=== PATIENT | female | born 1990 | race Caucasian/White ===

== ENCOUNTER 2017-06-29 14:54 | Emergency (ER) | payer SELFPAY ==
[2017-06-29 14:56] VITALS: BP 152/80; PULSE 110; RESP 18; TEMP 37.3; O2SAT 97; BMI 43.7
--- NOTE | 2017-06-29 15:10 | ED.VISSUMM ---
- ER Visit Summary Date of Service: 06/29/17 Chief Complaint: Back pain History of Present Illness: The patient is a 26 F presenting for evaluation secondary to back pain. Patient states that about a month and a half ago she suffered a mechanical fall. Patient states that she had lower back pain since then, there was continuous and was not alleviated by stretches and [id number] ibuprofen and Tylenol. Patient states that 5 days ago she went to a chiropractor who did manipulation, and she states that her pain is significantly worse. Patient localizes her pain in her lower back states that it used to radiate down her left leg now is radiating down her right leg. She denies any bowel or bladder incontinence numbness weakness fevers history of IV drug abuse or any recent injections or procedures. She denies any unintended weight loss. Pain is worse with ambulation. Review of systems otherwise negative. Physical Examination: Vitals: Within normal limits General: Well-nourished well-developed no acute distress Head: Normocephalic atraumatic ENT: Moist mucous membranes Neck: Supple no JVD Cardiovascular: Heart regular rate and rhythm no murmurs Respiratory: Respirations nondistressed, lung sounds clear to auscultation bilaterally Abdominal: Soft, nontender, nondistended, normal bowel sounds, no evidence of abdominal masses or pulsatile mass Back: Normal to inspection, both midline and paraspinal lumbar tenderness to palpation without localization step-off or deformity noted., straight leg raise negative bilaterally Extremities: Nontender, nonedematous, 2+ radial and PT pulses bilaterally symmetric Skin: Normal color no rash Neuro: 5/5 strength hip flexion, knee flexion, knee extension, dorsiflexion, plantarflexion, EHL. Sensation intact over all dermatomes of the lower extremities bilaterally, 2+ patellar and Achilles reflexes bilaterally symmetric, negative clonus bilaterally Test Results: 3 view lumbar x-ray per radiology shows DJD and scoliosis Emergency Department Course and Treatment: Patient presented to the emergency department for evaluation secondary to back pain. Her history seems like she does have a radicular component to this and she had some midline tenderness on x-ray was obtained which was found to be essentially negative except for some degenerative disc disease. This point given the patient's radicular symptoms she will be placed on a short course of steroids. She was recommended follow-up with her primary care doctor. Disposition: Discharge Impression: 1. Lumbar radiculopathy This note was generated with [employer] dictation software. It may contain incorrect words, spelling, and punctuation that were not noted in review of the chart prior to signing ED Disposition - Plan for ED Patient: Disposition: Home or Assisted Living Chief Complaint: Back Diagnosis: Lumbar radiculopathy, acute Instructions: ED Sciatica Prescriptions: MethylPREDNISolone DosePak [Medrol DosePak] 4 mg PO UD #1 box Referrals: Bishnu Johnson MD [Primary Care Provider] - 1 Week if not improving
--- NOTE | 2017-06-29 15:13 | ED.DCSUM_ITS ---
- ER Visit Summary Date of Service: 06/29/17 Chief Complaint: Back pain History of Present Illness: The patient is a 26 F presenting for evaluation secondary to back pain. Patient states that about a month and a half ago she suffered a mechanical fall. Patient states that she had lower back pain since then, there was continuous and was not alleviated by stretches and over-the- counter ibuprofen and Tylenol. Patient states that 5 days ago she went to a chiropractor who did manipulation, and she states that her pain is significantly worse. Patient localizes her pain in her lower back states that it used to radiate down her left leg now is radiating down her right leg. She denies any bowel or bladder incontinence numbness weakness fevers history of IV drug abuse or any recent injections or procedures. She denies any unintended weight loss. Pain is worse with ambulation. Review of systems otherwise negative. Physical Examination: Vitals: Within normal limits General: Well-nourished well-developed no acute distress Head: Normocephalic atraumatic ENT: Moist mucous membranes Neck: Supple no JVD Cardiovascular: Heart regular rate and rhythm no murmurs Respiratory: Respirations nondistressed, lung sounds clear to auscultation bilaterally Abdominal: Soft, nontender, nondistended, normal bowel sounds, no evidence of abdominal masses or pulsatile mass Back: Normal to inspection, both midline and paraspinal lumbar tenderness to palpation without localization step-off or deformity noted., straight leg raise negative bilaterally Extremities: Nontender, nonedematous, 2+ radial and PT pulses bilaterally symmetric Skin: Normal color no rash Neuro: 5/5 strength hip flexion, knee flexion, knee extension, dorsiflexion, plantarflexion, EHL. Sensation intact over all dermatomes of the lower extremities bilaterally, 2+ patellar and Achilles reflexes bilaterally symmetric , negative clonus bilaterally Test Results: 3 view lumbar x-ray per radiology shows DJD and scoliosis Emergency Department Course and Treatment: Patient presented to the emergency department for evaluation secondary to back pain. Her history seems like she does have a radicular component to this and she had some midline tenderness on x -ray was obtained which was found to be essentially negative except for some degenerative disc disease. This point given the patient's radicular symptoms she will be placed on a short course of steroids. She was recommended follow- up with her primary care doctor. Disposition: Discharge Impression: 1. Lumbar radiculopathy This note was generated with [employer] dictation software. It may contain incorrect words, spelling, and punctuation that were not noted in review of the chart prior to signing ED Disposition - Plan for ED Patient: Disposition: Home or Assisted Living Chief Complaint: Back Diagnosis: Lumbar radiculopathy, acute Instructions: ED Sciatica Prescriptions: MethylPREDNISolone DosePak [Medrol DosePak] 4 mg PO UD #1 box Referrals: Bishnu Johnson MD [Primary Care Provider] - 1 Week if not improving
--- NOTE | 2017-06-29 15:35 | RAD_ITS ---
STUDY: X-RAY - LUMBAR SPINE REASON FOR EXAM: Female, 26 years old. Increasing low back pain and spasm following a recent fall. TECHNIQUE: 3 view(s) of the lumbar spine were obtained. COMPARISON: None FINDINGS: There is straightening of the normal lumbar lordosis. There is no substantial scoliosis. There is a normal alignment of the vertebrae. Normal vertebral bodies and endplates. Mild degree of disc space narrowing at the L3-L4, L4-L5 and L5-S1 levels. IUD is seen within the pelvis. RAD/Lumbar Spine 2 or 3 Views IMPRESSION: Mild degree of disc space narrowing at the L3-L4, L4-L5 and L5-S1 levels. Electronically Signed: Jeff Masterson MD at 15:47 EDT Tel [phone], Service support ,
[2017-06-29 16:11] VITALS: BP 134/69; PULSE 64; RESP 17
== END 2017-06-29 16:12 | disposition home or self-care (01) ==
PROVIDERS: Emergency Provider Emergency Medicine; Family Provider Family Medicine; PCP Family Medicine
DX: M54.16 Radiculopathy, lumbar region (principal); F41.9 Anxiety disorder, unspecified; E66.9 Obesity, unspecified; Z68.41 Body mass index [BMI] 40.0-44.9, adult
CPT/HCPCS: 72100; 99282

== ENCOUNTER 2017-08-03 12:44 | Emergency (ER) | payer OTHER, SELFPAY ==
[2017-08-03 12:46] VITALS: BP 143/83; PULSE 103; RESP 16; TEMP 37.2; O2SAT 98; BMI 42.8
--- NOTE | 2017-08-03 12:49 | ED.RN ---
DATABASE CHECKED FOR DRUG SCREEN. NOT IN SYSTEM. PT INSTRUCTED TO SUPPLY CLERK FOR DRUG SCREEN/FOLLOW UP.
--- NOTE | 2017-08-03 13:07 | ED.RN ---
per Florecita in HR at [facility] any company can be used for necessary drug testing. [facility] contacted
--- NOTE | 2017-08-03 13:20 | RAD_ITS ---
STUDY: X-RAY - RIGHT HAND REASON FOR EXAM: Female, 27 years old. Pain following injury. TECHNIQUE: 4 view(s) of the hand. COMPARISON: None. FINDINGS: Normal radiocarpal articulation. Normal distal radioulnar joint. Normal visualized carpal bones. Normal carpal articulations Normal carpometacarpal articulation of the thumb. Normal second through fifth carpometacarpal joints. Normal metacarpi. Normal metacarpophalangeal joint of the thumb. Normal interphalangeal joint of the thumb. Normal proximal and distal phalanges of the thumb. Normal metacarpophalangeal joints of the second through fifth fingers. Normal proximal and distal interphalangeal joints of the second through fifth fingers. Normal phalanges of the second through fifth fingers. The soft tissue structures are unremarkable. RAD/Hand Min 3 Views IMPRESSION: Normal x-ray examination of the hand. Electronically Signed: Jeff Masterson MD at 13:50 EDT Tel [phone], Service support ,
[2017-08-03] MEDS: Naproxen 500 MG Tablet PO (13:36)
--- NOTE | 2017-08-03 13:54 | ED.VISSUMM ---
- ER Visit Summary Date of Service: 08/03/17 Chief Complaint: Right hand injury History of Present Illness: The patient is a [address] Jett cortés. She is right-hand dominant. She reports that just prior to coming emergency department she had a window propped up with a piece of wood and it fell and crushed her right hand. She has pain is 1010 with movement and 7 out of 10 at rest. She describes this as sharp. She has no paresthesias distally. She denies any other complaints. Physical Examination: Vitals: Stable. Afebrile. General: Well-nourished and well-developed. Head: Normocephalic atraumatic. Neck: Supple, no lymphadenopathy. No JVD. Nontender. Cardiovascular: Regular rate and rhythm. No murmurs. Respiratory: No respiratory distress. Clear to auscultation bilaterally. Abdominal: Soft, nontender, nondistended, normal bowel sounds. No guarding, rebound, or peritoneal signs. Back: Nontender. Extremities: Moderate tenderness palpation over the dorsum of her right hand. Mild soft tissue swelling. No contusion. Neurovascular intact distally. Skin: Normal color, no rash. Neurologic: Alert and oriented ?3. Cranial nerves II through XII are intact. Normal strength and sensation. Psych: Normal affect. Test Results: X-ray is negative. Emergency Department Course and Treatment: Patient was treated with naproxen. Treatment Plan: Patient will be discharged instructed use Tylenol and/or ibuprofen for pain. [facility] for another exam. Disposition: To home in improved and stable condition. Impression: 1. Crush injury right hand. This note was generated with [employer] dictation software. It may contain incorrect words, spelling, and punctuation that were not noted in review of the chart prior to signing ED Disposition - Plan for ED Patient: Chief Complaint: Upper Extremity Injury Instructions: ED Contusion Hand Referrals: [facility] [GROUP OF PHYSICIANS] - 1 Week
--- NOTE | 2017-08-03 14:08 | ED.DCSUM_ITS ---
- ER Visit Summary Date of Service: 08/03/17 Chief Complaint: Right hand injury History of Present Illness: The patient is a [address] Jett cortés. She is right-hand dominant. She reports that just prior to coming emergency department she had a window propped up with a piece of wood and it fell and crushed her right hand. She has pain is 1010 with movement and 7 out of 10 at rest. She describes this as sharp. She has no paresthesias distally. She denies any other complaints. Physical Examination: Vitals: Stable. Afebrile. General: Well-nourished and well-developed. Head: Normocephalic atraumatic. Neck: Supple, no lymphadenopathy. No JVD. Nontender. Cardiovascular: Regular rate and rhythm. No murmurs. Respiratory: No respiratory distress. Clear to auscultation bilaterally. Abdominal: Soft, nontender, nondistended, normal bowel sounds. No guarding, rebound, or peritoneal signs. Back: Nontender. Extremities: Moderate tenderness palpation over the dorsum of her right hand. Mild soft tissue swelling. No contusion. Neurovascular intact distally. Skin: Normal color, no rash. Neurologic: Alert and oriented ?3. Cranial nerves II through XII are intact. Normal strength and sensation. Psych: Normal affect. Test Results: X-ray is negative. Emergency Department Course and Treatment: Patient was treated with naproxen. Treatment Plan: Patient will be discharged instructed use Tylenol and/or ibuprofen for pain. Follow-up [facility] in 1 week for another exam. Disposition: To home in improved and stable condition. Impression: 1. Crush injury right hand. This note was generated with [employer] dictation software. It may contain incorrect words, spelling, and punctuation that were not noted in review of the chart prior to signing ED Disposition - Plan for ED Patient: Chief Complaint: Upper Extremity Injury Instructions: ED Contusion Hand Referrals: [facility] [GROUP OF PHYSICIANS] - 1 Week
== END 2017-08-03 14:26 | disposition home or self-care (01) ==
LOC: ED 13:59
PROVIDERS: Emergency Provider Emergency Medicine; Family Provider Family Medicine; PCP Family Medicine
DX: S67.21XA Crushing injury of right hand, initial encounter (principal); W22.8XXA Striking against or struck by other objects, initial encounter; Y93.9 Activity, unspecified; Y92.9 Unspecified place or not applicable; Z72.89 Other problems related to lifestyle
CPT/HCPCS: 73130; 99283

== ENCOUNTER → 2018-01-28 15:39 | Outpatient (CLI) | payer OTHER, SELFPAY ==
[2018-01-28 17:36] LABS: Absolute Lymphocyte Count 2.33 X10^3/ul (0.83-4.51); Absolute Neutrophil Count 3.5 X10^3/uL (2.0-7.7); Basophil# 0.02 X10^3/uL; Basophil% 0.3 % (0-1); Eosinophil# 0.09 X10^3/uL; Eosinophils% 1.4 % (0-5); Hematocrit 39.8 % (37-47); Lymphocyte # 2.33 X10^3/ul (4.0); Mean Corp Hgb Conc 32.7 g/gl (32-36); Mean Corpuscular Volume 91.7 fL (81-99); Mean Platelet Vol. 10.2 fl (6.2-12.0); Monocyte% 6.3 % (0-10); Neutrophil # 3.46 X10^3/uL (2.7-7.7); Platelet Count 225 K/mm3 (150-450); RBC Distribution Width CV 12.9 % (11.6-14.6); RBC Distribution Width SD 43.3 fl (35.1-43.9); Red Blood Count 4.34 M/mm3 (4.2-5.4); White Blood Count 6.3 K/mm3 (4.4-11.0)
[2018-01-28 17:39] LABS: POSITIVE COUNT NO; POSITIVE DIFFERENTIAL NO; POSITIVE MORPHOLOGY NO
[2018-01-28 17:55] LABS: ALB/GLOB Ratio 0.9 RATIO (0.9-2.4); AST(SGOT) 12 U/L (15-37); Alanine Aminotransfer ALT/SGPT 25 U/L (13-56); Albumin, Serum 3.7 g/dL (3.2-5.0); Alkaline Phosphatase 66 U/L (45-117); Anion Gap 9 (5-15); BUN 12 mg/dL (7-18); Calcium,Total 8.9 mg/dL (8.5-10.1); Chloride 107 mmol/L (98-107); Creatinine, Serum 0.86 mg/dL (0.55-1.02); EST Glomerular Filtration Rate 85 mL/min (>60); Est Glom Filt Rate - Afr Amer 103 mL/min (>60); Globulin 3.9 g/dL (2.2-4.2); Glucose 79 mg/dL (74-106); Potassium 3.8 mmol/L (3.5-5.1); Protein, Total 7.6 g/dL (6.4-8.2); Sodium Level 140 mmol/L (136-145)
== END ==
PROVIDERS: Family Provider Internal Medicine; PCP Internal Medicine; Referring Provider Internal Medicine; Visit Provider Internal Medicine
DX: F32.9 Major depressive disorder, single episode, unspecified (principal); F41.9 Anxiety disorder, unspecified
CPT/HCPCS: 36415; 80053; 85025

== ENCOUNTER 2018-02-14 16:02 | Emergency (ER) | payer OTHER, SELFPAY ==
[2018-02-14 16:03] VITALS: BP 142/91; PULSE 96; RESP 18; TEMP 36.4; O2SAT 99; BMI 43.7
--- NOTE | 2018-02-14 16:25 | RAD_ITS ---
STUDY: X-RAY - LEFT HAND, ATTENTION FIRST FINGER REASON FOR EXAM: Female, 27 years old. Laceration. TECHNIQUE: 3 view(s) of the finger were obtained. COMPARISON: None. FINDINGS: Normal metacarpal head. Normal metacarpophalangeal joint. Normal proximal phalanx. Normal middle phalanx. Normal distal phalanx. Normal proximal interphalangeal joint. Normal distal interphalangeal joint. RAD/Finger(s) Min 2 Views IMPRESSION: Normal x-ray examination of the finger. Electronically Signed: Cain Ruffin DO at 16:43 EDT Tel , Service support ,
--- NOTE | 2018-02-14 16:25 | ED.VISSUMM ---
- ER Visit Summary Date of Service: 02/14/18 Chief Complaint: Left thumb injury History of Present Illness: The patient is a 27 F who presents 30 minutes after accidentally stabbing her left thumb with a pair of utility scissors. 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 She denies any recent use of the scissors on wound care or any exposure to body fluids. Her tetanus is up-to-date. The scissors slipped and she punctured the distal left thumb with the scissors. She has associated pain. No loss of function. Denies any history of bleeding disorder. Is not on any blood thinners. Physical Examination: Patient is well-nourished and well-developed in no distress. Examination of the left hand shows a small puncture wound to the distal finger pad of the left thumb no active hemorrhage unless the wound is squeezed, tender to palpation but no threatening erythema, no purulent exudate. No nailbed involvement. Full active flexion and extension of the IP joint. Sensation and motor function intact. Test Results: Clinical Impression(s) from Imaging Studies Finger X-Ray 02/14/18 16:25 IMPRESSION: Normal x-ray examination of the finger. Electronically Signed: Cain Ruffin DO at 16:43 EDT Tel , Service support , Emergency Department Course and Treatment: The injury was thoroughly washed with tap water and soap. X-ray of the thumb performed to make sure no foreign bodies became embedded in the puncture or there is no bony involvement due to unclear depth of the wound. X-ray showed no fractures, foreign bodies or deep space air. After the wound was cleansed thoroughly, reevaluation looks like a more superficial tract of the puncture pathway. Patient was given wound care instructions. Bacitracin was placed on the wound and it was bandaged. It did not require any stitches. Patient is to follow-up with her primary care doctor if she has any concerns or return if she has concerns for infection. Patient was offered and declined completion of Worker's Comp. paperwork. Patient was discharged home. Treatment Plan: [] Disposition: [] Impression: Accidental puncture wound to the left thumb, uncomplicated This note was generated with Dragon dictation software. It may contain incorrect words, spelling, and punctuation that were not noted in review of the chart prior to signing ED Disposition - Plan for ED Patient: Disposition: Home or Assisted Living Chief Complaint: Laceration Instructions: ED Laceration Hand Referrals: Hetal Benson MD [Primary Care Provider] - 3-5 Days if not improving Additional Instructions: Keep the cut on your thumb clean and bandaged. You may cover it with antibacterial ointment. If you have any severe pain, swelling, redness, or any pus wound, please return immediately for another evaluation. If you have any worsening of your condition or any new concerning symptoms, please return immediately to the emergency department for another evaluation.
[2018-02-14] MEDS: Naproxen 500 MG Tablet PO (16:36)
--- NOTE | 2018-02-14 17:34 | ED.DEP ---
ED Disposition - Plan for ED Patient: Disposition: Home or Assisted Living Chief Complaint: Laceration Instructions: ED Laceration Hand Referrals: Hetal Benson MD [Primary Care Provider] - 3-5 Days if not improving Additional Instructions: Keep the cut on your thumb clean and bandaged. You may cover it with antibacterial ointment. If you have any severe pain, swelling, redness, or any pus wound, please return immediately for another evaluation. If you have any worsening of your condition or any new concerning symptoms, please return immediately to the emergency department for another evaluation.
== END 2018-02-14 17:42 | disposition home or self-care (01) ==
PROVIDERS: Emergency Provider Emergency Medicine; Family Provider Internal Medicine; PCP Internal Medicine
DX: S61.032A Puncture wound without foreign body of left thumb without damage to nail, initial encounter (principal); W26.8XXA Contact with other sharp object(s), not elsewhere classified, initial encounter; Y93.89 Activity, other specified
CPT/HCPCS: 73140; 99283

== ENCOUNTER → 2018-04-22 13:44 | Outpatient (CLI) | payer OTHER, SELFPAY ==
[2018-04-08 07:16] VITALS: BMI 43.9
[2018-04-26 14:58] LABS: HPV Reflexed? NOT INDICATED
== END ==
PROVIDERS: Visit Provider Obstetrics & Gynecology
DX: Z01.419 Encounter for gynecological examination (general) (routine) without abnormal findings (principal)
CPT/HCPCS: 87624; 88175; G0145

== ENCOUNTER → 2018-09-09 07:49 | Outpatient (CLI) | payer OTHER, SELFPAY ==
[2018-09-02 09:10] VITALS: BMI 43.9
[2018-09-09 08:48] LABS: hCG Titer Quant., Serum < 1 mIU/mL (1-3)
== END ==
PROVIDERS: Family Provider Internal Medicine; PCP Internal Medicine; Referring Provider Obstetrics & Gynecology; Visit Provider Obstetrics & Gynecology
DX: N91.2 Amenorrhea, unspecified (principal)
CPT/HCPCS: 36415; 84702

== ENCOUNTER 2018-10-07 09:21 | Emergency (ER) | payer OTHER, SELFPAY ==
[2018-09-02 09:10] VITALS: BMI 43.9
[2018-10-07 09:23] VITALS: BP 133/90; PULSE 98; RESP 17; TEMP 36.8; O2SAT 100; BMI 44.6
--- NOTE | 2018-10-07 10:11 | ED.VISSUMM ---
- ER Visit Summary Date of Service: 10/07/18 Chief Complaint: Back pain History of Present Illness: The patient is a 28 F with low back pain. Patient has had pain on and off. This episode started yesterday. Pain is over her bilateral lower back. Denies any injury or inciting factors. Worse with movement and use. Out of her medications. Not . Denies INSURANCE LOSS CONTROL SURVEYOR or symptoms. Denies any abdominal pain or GI symptoms. Denies any fever or systemic symptoms. No history of back surgery, immune compromise, or IV drug abuse. Physical Examination: Afebrile and vital signs are unremarkable. BMI 44.7. Abdomen is soft and nontender. CVA nontender. Bilateral lower manager background to palpation. Straight leg raise negative. Good strength and sensation. Normal pulses. Skin appears normal. Test Results: None indicated Emergency Department Course and Treatment: Patient resents with myofascial back pain. Nothing to suggest spine, neurologic, GI, , INSURANCE LOSS CONTROL SURVEYOR pathology. Patient was treated with Toradol and Norflex. Evaluation, patient is feeling only slightly better. She would like to try to go home. Will prescribe naproxen, Flexeril, and prednisone burst. Patient will follow-up with her doctor. Treatment Plan: As above Disposition: Discharge Impression: 1. Low back pain This note was generated with [employer] dictation software. It may contain incorrect words, spelling, and punctuation that were not noted in review of the chart prior to signing ED Disposition - Plan for ED Patient: Referrals: Hetal Benson MD [Primary Care Provider] -
[2018-10-07] MEDS: Orphenadrine 60 MG/2 ML Ampul IM (10:30)
[2018-10-07] MEDS: Ketorolac 60 MG/2 ML Vial IM (10:30)
--- NOTE | 2018-10-07 10:59 | ED.DEP ---
ED Disposition - Plan for ED Patient: Instructions: BACK SPASM, No Trauma Prescriptions: Prednisone [Deltasone] 40 mg PO DAILY #10 tab Prescription Printed cycloBENZAPRine HCl [Flexeril] 10 mg PO TID PRN #20 tab PRN Reason: Muscle Spasm Prescription Printed Naproxen [Naprosyn] 500 mg PO BID PRN #20 tab Prescription Printed Referrals: Hetal Benson MD [Primary Care Provider] -
[2018-10-07 11:14] VITALS: BP 122/74; PULSE 73; RESP 17; O2SAT 99
== END 2018-10-07 11:18 | disposition home or self-care (01) ==
PROVIDERS: Emergency Provider Emergency Medicine; Family Provider Internal Medicine; PCP Internal Medicine
DX: M54.5 Low back pain (principal)
CPT/HCPCS: 96372; 99282

== ENCOUNTER → 2019-02-17 07:57 | Outpatient (CLI) | payer OTHER, SELFPAY ==
[2019-02-17 07:14] VITALS: BMI 44.1
--- NOTE | 2019-02-17 08:00 | RAD_ITS ---
STUDY: X-RAY - LUMBAR SPINE REASON FOR EXAM: Female, 28 years old. Sciatica. TECHNIQUE: 3 view(s) of the lumbar spine were obtained. COMPARISON: 06/29/2017 FINDINGS: Normal lumbar lordosis. There is no substantial scoliosis. There is a normal alignment of the vertebrae. Normal vertebral bodies and endplates. Normal disc space heights. There is no demonstrated fracture. Probable 3 mm stone of the left kidney, stable, otherwise the soft tissue structures are unremarkable. RAD/Lumbar Spine 2 or 3 Views IMPRESSION: Normal x-ray examination of the lumbar spine. Electronically Signed: Jorge L Goins MD at 14:00 EST , Service support ,
[2019-02-17 10:07] LABS: Hematocrit 40.5 % (37-47); Hemoglobin 13.4 g/dL (12.0-15.0); Mean Corp Hgb Conc 33.1 g/dL (32-36); Mean Corpuscular Hgb 30.2 pg (27.0-32.0); Mean Corpuscular Volume 91.4 fL (81-99); Mean Platelet Vol. 10.9 fl (6.2-12.0); Platelet Count 178 K/mm3 (150-450); RBC Distribution Width CV 12.3 % (11.6-14.6); RBC Distribution Width SD 41.1 fl (35.1-43.9); Red Blood Count 4.43 M/mm3 (4.2-5.4); White Blood Count 6.1 K/mm3 (4.4-11.0)
[2019-02-17 10:36] LABS: Anion Gap 6 (5-15); BUN 12 mg/dL (7-18); BUN/Creat Ratio 13.9 RATIO (10-20); Calcium,Total 8.7 mg/dL (8.5-10.1); Chloride 108 mmol/L (98-107); Cholesterol 151 mg/dL (200); Creatinine, Serum 0.86 mg/dL (0.55-1.02); EST Glomerular Filtration Rate 84 mL/min (>60); Est Glom Filt Rate - Afr Amer 101 mL/min (>60); Glucose 90 mg/dL (74-106); High Density Lipoprotein 34 mg/dL; Potassium 4.2 mmol/L (3.5-5.1); Sodium Level 140 mmol/L (136-145); Triglycerides 137 mg/dL; Very Low Density Lipoprotein 27 mg/dL (5-40)
== END ==
PROVIDERS: Family Provider Internal Medicine; PCP Internal Medicine; Referring Provider Nurse Practitioner Family; Visit Provider Nurse Practitioner Family
DX: Z13.220 Encounter for screening for lipoid disorders (principal); F32.9 Major depressive disorder, single episode, unspecified; F41.9 Anxiety disorder, unspecified; M54.9 Dorsalgia, unspecified; G89.29 Other chronic pain
CPT/HCPCS: 36415; 72100; 80048; 80061; 84443; 85027

== ENCOUNTER → 2019-10-13 09:12 | Outpatient (CLI) | payer OTHER, SELFPAY ==
[2019-10-13 08:25] VITALS: BMI 44.1
[2019-10-13 12:38] LABS: Basophil# 0.02 X10^3/uL; Basophil% 0.3 % (0-1); Eosinophil# 0.04 X10^3/uL; Eosinophils% 0.7 % (0-5); Hematocrit 40.7 % (37-47); Hemoglobin 13.7 g/dL (12.0-15.0); Lymphocyte % 25.1 % (19-41); Mean Corp Hgb Conc 33.7 g/dL (32-36); Mean Corpuscular Hgb 31.6 pg (27.0-32.0); Mean Corpuscular Volume 93.8 fL (81-99); Mean Platelet Vol. 10.9 fl (6.2-12.0); Monocyte# 0.38 X10^3/uL; Monocyte% 6.4 % (0-10); NRBC Flagged by Analyzer 0 % (0-5); Neutrophil # 4.01 X10^3/uL (2.7-7.7); Neutrophil % 67.2 % (47-70); Platelet Count 247 K/mm3 (150-450); RBC Distribution Width CV 11.9 % (11.6-14.6); Red Blood Count 4.34 M/mm3 (4.2-5.4)
[2019-10-13 12:52] LABS: AST(SGOT) 17 U/L (15-37); Alanine Aminotransfer ALT/SGPT 22 U/L (13-56); Albumin, Serum 3.8 g/dL (3.2-5.0); Alkaline Phosphatase 56 U/L (45-117); Anion Gap 4 (5-15); BUN 15 mg/dL (7-18); BUN/Creat Ratio 18.8 RATIO (10-20); Calcium,Total 8.9 mg/dL (8.5-10.1); Chloride 110 mmol/L (98-107); EST Glomerular Filtration Rate 91 mL/min (>60); Est Glom Filt Rate - Afr Amer 110 mL/min (>60); Globulin 3.9 g/dL (2.2-4.2); Glucose 91 mg/dL (74-106); Potassium 4.3 mmol/L (3.5-5.1); Protein, Total 7.7 g/dL (6.4-8.2); Sodium Level 139 mmol/L (136-145)
== END ==
LOC: BIMLAB 09:13
PROVIDERS: PCP Internal Medicine; Referring Provider Internal Medicine; Visit Provider Internal Medicine
DX: L02.31 Cutaneous abscess of buttock (principal)
CPT/HCPCS: 36415; 80053; 85025

== ENCOUNTER → 2019-11-27 07:26 | Outpatient (CLI) | payer OTHER, SELFPAY ==
[2019-11-24 08:24] VITALS: BMI 44.1
--- NOTE | 2019-11-27 07:26 | MRI_ITS ---
STUDY: MRI LUMBAR SPINE WITHOUT CONTRAST REASON FOR EXAM: Female, 29 years old. chronic back pain 2 1/2 years after having a fall TECHNIQUE: Standardized fat and water weighted pulse sequences were obtained in the sagittal and axial planes. COMPARISON: X-ray 02/17/2019 FINDINGS: T12-L1: Normal endplates. Normal disc height, hydration and morphology. Normal bilateral facet joints. Normal central canal and bilateral lateral recesses. Normal bilateral intervertebral neural foramina. Normal lumbar lordosis. There is no substantial scoliosis. Normal conus medullaris that terminates at the T12 L1-2: Normal endplates. Normal disc height, hydration and morphology. Normal bilateral facet joints. Normal central canal and bilateral lateral recesses. Normal bilateral intervertebral neural foramina. L2-3: Small central disc protrusion produces mild spinal stenosis with mild bilateral recess stenosis but no neural foraminal stenosis. L3-4: Small central disc protrusion produces mild spinal stenosis with mild bilateral lateral recess stenosis but no neural foraminal stenosis. L4-5: Mild bilateral facet hypertrophy and ligament flavum hypertrophy. Mild broad disc protrusion produces mild spinal stenosis with mild bilateral lateral recess stenosis, mild right neural foraminal stenosis, and moderate left neural foraminal stenosis with abutment of the left L4 nerve root laterally. L5-S1: Normal endplates. Normal disc height, hydration and morphology. Normal bilateral facet joints. Normal central canal and bilateral lateral recesses. Normal bilateral intervertebral neural foramina. Normal visualized sacral ala. Normal visualized paraspinous soft tissue structures. MRI/Spine Lumbar (Routine) IMPRESSION: Multilevel degenerative changes, as described above. Electronically Signed: Toan Cabrera MD at 8:34 EDT Tel , Service support ,
== END ==
LOC: MRI 07:26
PROVIDERS: PCP Internal Medicine; Referring Provider Internal Medicine; Visit Provider Internal Medicine
DX: M54.9 Dorsalgia, unspecified (principal); G89.29 Other chronic pain
CPT/HCPCS: 72148

== ENCOUNTER → 2020-07-01 | Outpatient (CLI) | payer SELFPAY ==
[2020-05-10 14:39] VITALS: BMI 45.0
[2020-07-04 03:07] LABS: Chlamydia By Nucleic Acid AMP Negative (Negative)
[2020-07-04 07:28] LABS: Gonococcus By Nucleic Acid AMP Negative (Negative)
== END | disposition home or self-care (01) ==
LOC: LABSPEC 14:46
PROVIDERS: PCP Internal Medicine; Visit Provider Obstetrics & Gynecology
DX: Z34.81 Encounter for supervision of other normal pregnancy, first trimester (principal)
CPT/HCPCS: 87491; 87591

== ENCOUNTER → 2020-07-15 13:44 | Outpatient (CLI) | payer SELFPAY ==
[2020-05-10 14:39] VITALS: BMI 45.0
[2020-07-15 14:44] LABS: Absolute Lymphocyte Count 1.88 X10^3/uL (0.83-4.51); Absolute Neutrophil Count 7.6 X10^3/uL (2.0-7.7); Basophil# 0.02 X10^3/uL; Basophil% 0.2 % (0-1); Eosinophil# 0.05 X10^3/uL; Eosinophils% 0.5 % (0-5); Hematocrit 39.8 % (37-47); Hemoglobin 13.3 g/dL (12.0-15.0); Lymphocyte # 1.88 X10^3/ul (4.0); Lymphocyte % 18.9 % (19-41); Mean Corp Hgb Conc 33.4 g/dL (32-36); Mean Corpuscular Volume 92.8 fL (81-99); Mean Platelet Vol. 10.3 fl (6.2-12.0); Monocyte# 0.38 X10^3/uL; Monocyte% 3.8 % (0-10); NRBC Flagged by Analyzer 0 % (0-5); Neutrophil # 7.59 X10^3/uL (2.7-7.7); Neutrophil % 76.3 % (47-70); Platelet Count 257 K/mm3 (150-450); RBC Distribution Width CV 12.3 % (11.6-14.6); RBC Distribution Width SD 41.9 fl (35.1-43.9); Red Blood Count 4.29 M/mm3 (4.2-5.4)
[2020-07-15 15:32] LABS: Glucose Challenge Gest 1H 50g 98 mg/dL (70-140)
[2020-07-15 15:54] LABS: HIV - WCH Non-Reactive (Nonreactive); Hepatitis B Surface Antigen Non-Reactive (Nonreactive); Hepatitis C Antibody Non-Reactive (Nonreactive); Rubella IgG Reactive (Nonreactive); Syphilis Antibodies Non-reactive
== END ==
PROVIDERS: PCP Internal Medicine; Visit Provider Obstetrics & Gynecology
DX: Z34.81 Encounter for supervision of other normal pregnancy, first trimester (principal)
CPT/HCPCS: 36415; 82950; 85025; 86703; 86762; 86780; 86803; 87077; 87086; 87088; 87186; 87340

== ENCOUNTER → 2020-11-19 10:23 | Outpatient (CLI) | payer OTHER, SELFPAY ==
[2020-11-05 13:51] VITALS: BMI 45.0
[2020-11-19 15:41] LABS: Hematocrit 34.8 % (37-47); Hemoglobin 11.5 g/dL (12.0-15.0); Mean Corpuscular Hgb 30.9 pg (27.0-32.0); Mean Corpuscular Volume 93.5 fL (81-99); Mean Platelet Vol. 10.8 fl (6.2-12.0); Platelet Count 203 K/mm3 (150-450); RBC Distribution Width CV 14.2 % (11.6-14.6); RBC Distribution Width SD 48.6 fl (35.1-43.9); Red Blood Count 3.72 M/mm3 (4.2-5.4); White Blood Count 10.2 K/mm3 (4.4-11.0)
[2020-11-19 15:51] LABS: Glucose Challenge Gest 1H 50g 117 mg/dL (70-140)
== END ==
PROVIDERS: PCP Internal Medicine; Visit Provider Obstetrics & Gynecology
DX: Z34.82 Encounter for supervision of other normal pregnancy, second trimester (principal)
CPT/HCPCS: 36415; 82950; 85027

== ENCOUNTER → 2021-01-24 | Outpatient (CLI) | payer OTHER, SELFPAY | END | disposition home or self-care (01) | LOC: LABSPEC 15:53 | PROVIDERS: PCP Internal Medicine; Visit Provider Student in an Organized Health Care Education/Training Program | DX: Z36.85 Encounter for antenatal screening for Streptococcus B (principal) | CPT/HCPCS: 87081 ==

== ENCOUNTER → 2021-02-07 | Outpatient (CLI) | payer OTHER, SELFPAY | END | disposition home or self-care (01) | LOC: LABSPEC 12:29 | PROVIDERS: PCP Internal Medicine; Visit Provider Obstetrics & Gynecology | DX: Z20.822 Contact with and (suspected) exposure to COVID-19 (principal) | CPT/HCPCS: 87635; U0005; U0003 ==

== ENCOUNTER 2021-02-13 07:00 | Inpatient (IN) | payer OTHER, MEDICAID, SELFPAY ==
[2021-02-13] VITALS (42 sets, daily range): BP systolic 121–169; BP diastolic 57–98; PULSE 82–251; TEMP 36.4–36.8; O2SAT 91–100; BMI 51.2
[2021-02-13] MEDS: Lactated Ringers 1,000 ML 50 ML IV (07:55)
[2021-02-13] MEDS: Oxytocin 30 units/NS 500 ml 30 UNITS/500 ML IV.SOLN IV (08:08)
[2021-02-13 08:12] LABS: Absolute Lymphocyte Count 1.46 X10^3/uL (0.83-4.51); Basophil# 0.02 X10^3/uL; Basophil% 0.2 % (0-1); Eosinophil# 0.02 X10^3/uL; Eosinophils% 0.2 % (0-5); Hematocrit 37.3 % (37-47); Hemoglobin 12.6 g/dL (12.0-15.0); Lymphocyte # 1.46 X10^3/ul (0.83-4.51); Lymphocyte % 13.4 % (19-41); Mean Corp Hgb Conc 33.8 g/dL (32-36); Mean Corpuscular Hgb 30.8 pg (27.0-32.0); Mean Corpuscular Volume 91.2 fL (81-99); Mean Platelet Vol. 10.4 fl (6.2-12.0); Monocyte# 0.38 X10^3/uL; Monocyte% 3.5 % (0-10); NRBC Flagged by Analyzer 0 % (0-5); Neutrophil # 8.96 X10^3/uL (2.7-7.7); Platelet Count 183 K/mm3 (150-450); RBC Distribution Width CV 15.8 % (11.6-14.6); RBC Distribution Width SD 51.6 fl (35.1-43.9); Red Blood Count 4.09 M/mm3 (4.2-5.4); White Blood Count 10.9 K/mm3 (4.4-11.0)
--- NOTE | 2021-02-13 08:50 | PCM.HP.BLA ---
History and Physical Date of Admission: 02/13/21 Chief complaint: Induction of labor at term History of present illness 30-year-old G2, P1 at 39 weeks and 0 days with YARELI 02/20/2021 by LMP arrives for induction of labor at term. Denies headache, visual changes, chest pain, shortness of breath, right upper quadrant pain. Patient dates good movement. Obstetric history: G1: 39 weeks female 11/17/2015 G2: Current Past medical history: None Medications: None Past surgical history: None Allergies: No known drug allergies Social history: Denies smoking, alcohol use, drug use Family history: Denies history DVT or PE Review of systems: Besides the above pertinent positives a full review of systems was performed and found to be negative Physical exam: Vitals: Blood pressure 146/73 pulse 105 General: Normal-appearing no acute distress HEENT normocephalic atraumatic no cervical of adenopathy Cardiac/respiratory: No use of accessory muscles, nonlabored breathing Abdomen: Soft, nontender, gravid Extremities: No peripheral edema normal peripheral pulses Psych: Normal affect normal demeanor nonpressured speech Labs: White blood cell count 10.9 hemoglobin 12.6 hematocrit 37.3% platelets 183 Assessment plan: 30-year-old G2, P1 at 39 weeks and 0 days for induction of labor at term Admit labor and delivery CEFM GBS bacteriuria for penicillin Initially with elevated blood pressures will get help labs, asymptomatic otherwise Routine orders Anesthesia see
[2021-02-13 08:53] LABS: ALB/GLOB Ratio 0.6 RATIO (0.9-2.4); AST(SGOT) 13 U/L (15-37); Alanine Aminotransfer ALT/SGPT 15 U/L (13-56); Albumin, Serum 2.6 g/dL (3.2-5.0); Alkaline Phosphatase 104 U/L (45-117); Anion Gap 11 (5-15); BUN 9 mg/dL (7-18); BUN/Creat Ratio 10.7 RATIO (10-20); Calcium,Total 8.9 mg/dL (8.5-10.1); Chloride 107 mmol/L (98-107); Creatinine, Serum 0.84 mg/dL (0.55-1.02); EST Glomerular Filtration Rate 86 mL/min (>60); Est Glom Filt Rate - Afr Amer 104 mL/min (>60); Glucose 169 mg/dL (74-106); LDH 170 U/L (84-246); Potassium 3.9 mmol/L (3.5-5.1); Protein, Total 6.6 g/dL (6.4-8.2); Sodium Level 138 mmol/L (136-145)
[2021-02-13] MEDS: Penicillin G 3,000,000 Units 50 ML 100 UNITS IV ×2 (13:04→17:16)
[2021-02-13] MEDS: Lactated Ringers 500 ML 999 ML IV (15:04)
[2021-02-13] MEDS: fentaNYL-bupivacaine (epidural) 100 ML BAG EPIDURAL (16:23)
[2021-02-13] MEDS: 0.9% Saline Lock 10 ML Syringe IV (17:16)
[2021-02-13] MEDS: Ondansetron 4 MG/2 ML Vial IV (17:16)
--- NOTE | 2021-02-13 17:49 | PCM.PN.OB ---
Subjective Subjective Patient comfortable with epidural Objective Data Objective Data Vital Signs: Vital Signs Temp Pulse BP Pulse Ox 97.5 F L 82 133/74 H 100 02/13/21 16:54 02/13/21 17:15 02/13/21 17:15 02/13/21 16:54 Weight: 346 lb 12.594 oz Body Mass Index (BMI) 51.2 Intake & Output: Intake and Output for Last 24 Hours 02/11/21 02/12/21 02/13/21 23:59 23:59 23:59 Intake Total 2252.48 / 2252.48 Output Total 1100 / 1100 Balance 1152.48 / 1152.48 Lab / Micro Data Result Diagrams: 02/13/21 07:55 02/13/21 07:55 Labs: Laboratory Results - last 24 hr 02/13/21 07:55: WBC 10.9, RBC 4.09 L, Hgb 12.6, Hct 37.3, MCV 91.2, MCH 30.8, MCHC 33.8, RDW Std Deviation 51.6 H, RDW Coeff of Sandra 15.8 H, Plt Count 183, MPV 10.4, Immature Gran % (Auto) 0.700, Neut % (Auto) 82.0 H, Lymph % (Auto) 13.4 L, [place] % (Auto) 3.5, Eos % (Auto) 0.2, Baso % (Auto) 0.2, Absolute Neuts (auto) 9.0 H, Absolute Lymphs (auto) 1.46, Nucleated RBC % 0 02/13/21 07:55: Blood Type A POSITIVE, Antibody Screen NEGATIVE 02/13/21 07:55: Sodium 138, Potassium 3.9, Chloride 107, Carbon Dioxide 20.0 L, Anion Gap 11, BUN 9, Creatinine 0.84, Estim Creat Clear Calc 104.20, Est GFR (MDRD) Af Amer 104, Est GFR (MDRD) Non-Af 86, BUN/Creatinine Ratio 10.7, Glucose 169 H, Calcium 8.9, Total Bilirubin 0.20, AST 13 L, ALT 15, Alkaline Phosphatase 104, Lactate Dehydrogenase 170, Total Protein 6.6, Albumin 2.6 L, Globulin 4.0, Albumin/Globulin Ratio 0.6 L Physical Exam Const alert, oriented x3, no apparent distress, average body habitus, healthy appearing and well nourished HEENT normocephalic and moist oral mucous membranes Head and Scalp: atraumatic Face and Sinus: normal facial exam Eyes PERRL Neck full ROM Resp normal respiratory effort, no retractions and no use of accessory muscles Extremity normal to inspection, full ROM and no clubbing, cyanosis or edema Psych mental status grossly normal, affect normal, speech normal and activity/motor behavior normal Assessment & Plan (1) : PLAN: Patient seen and examined. Previously SROM'd. Comfortable with epidural. We will continue current management
[2021-02-13] MEDS: Lactated Ringers 1,000 ML 200 ML IV (17:55)
[2021-02-13] MEDS: Oxytocin 30 units/NS 500 ml 30 UNITS/500 ML IV.SOLN 334 UNITS IV (20:20)
[2021-02-13] MEDS: Methylergonovine 0.2 MG/ML Ampul IM (20:25)
--- NOTE | 2021-02-13 20:46 | EX.PCM.OBRPT ---
Vaginal Delivery Findings Description of Procedure: Normal spontaneous vaginal delivery of viable male infant, vertex TAMIR. Head and shoulders delivered with ease. Cord cut and clamped. Baby handed off to patient. Placenta delivered via cord traction and fundal massage. Second-degree midline perineal laceration noted and repaired in typical fashion. Methergine 0.2 mg given. EBL 400 cc Apgars 9/9
[2021-02-13] MEDS: Ibuprofen 600 MG Tablet PO (23:59)
[2021-02-14] VITALS (13 sets, daily range): BP systolic 105–149; BP diastolic 52–83; PULSE 67–113; RESP 16–18; TEMP 35.7–36.8; O2SAT 98
[2021-02-14] MEDS: DULoxetine Hcl 20 MG Capsule PO (00:34)
[2021-02-14] MEDS: Ibuprofen 600 MG Tablet PO ×2 (08:33→16:34)
--- NOTE | 2021-02-14 08:33 | PCM.PN.OB ---
Subjective Subjective No overnight complaints. Pain well controlled. Objective Data Objective Data Vital Signs: Vital Signs Temp Pulse Resp BP Pulse Ox 97.3 F L 95 16 149/80 H 99 02/14/21 03:58 02/14/21 03:58 02/14/21 03:58 02/14/21 03:58 02/13/21 21:00 Weight: 346 lb 12.594 oz Body Mass Index (BMI) 51.2 Intake & Output: Intake and Output for Last 24 Hours 02/12/21 02/13/21 02/14/21 23:59 23:59 23:59 Intake Total 3389.82 / 3389.82 Output Total 1500 / 1500 600 / 600 Balance 1889.82 / 1889.82 -600 / -600 Lab / Micro Data Result Diagrams: 02/13/21 07:55 02/13/21 07:55 Labs: Laboratory Results - last 24 hr 02/13/21 07:55: Blood Type A POSITIVE, Antibody Screen NEGATIVE 02/13/21 07:55: Sodium 138, Potassium 3.9, Chloride 107, Carbon Dioxide 20.0 L, Anion Gap 11, BUN 9, Creatinine 0.84, Estim Creat Clear Calc 104.20, Est GFR (MDRD) Af Amer 104, Est GFR (MDRD) Non-Af 86, BUN/Creatinine Ratio 10.7, Glucose 169 H, Calcium 8.9, Total Bilirubin 0.20, AST 13 L, ALT 15, Alkaline Phosphatase 104, Lactate Dehydrogenase 170, Total Protein 6.6, Albumin 2.6 L, Globulin 4.0, Albumin/Globulin Ratio 0.6 L Physical Exam Const alert, oriented x3, no apparent distress, average body habitus, healthy appearing and well nourished HEENT normocephalic and moist oral mucous membranes Head and Scalp: atraumatic Face and Sinus: normal facial exam Eyes PERRL Neck full ROM Resp normal respiratory effort, no retractions and no use of accessory muscles GI normal to inspection, nondistended, normoactive bowel sounds GI Narrative: Uterus firm and below umbilicus Extremity normal to inspection and no clubbing, cyanosis or edema Psych mental status grossly normal, affect normal, speech normal and activity/motor behavior normal Assessment & Plan (1) : PLAN: day 1. Breast-feeding. Pain well controlled. Likely home tomorrow
--- NOTE | 2021-02-14 09:00 | PCM.DC ---
Discharge Instructions Diet Discharge Diet: No restrictions Activity Discharge Activity: Return to Normal Activity, May Drive and May Shower May resume sexual activity in: 4-6 weeks Weight Bearing Status: Weight bearing as tolerated Dressing / Incision Call your doctor if your incision/area has: Continuous Slow Oozing and Foul Smelling Discharge Call your doctor if you observe: Fever of 101 or Higher, Shortness of breath and Chest pain Follow Up Care Please Follow Up With: Cody Goodwin MD When: 2-week telehealth, 4 to 6-week Test Results: Test results from this visit will be discussed in further detail at your follow-up appointment, if applicable. Discharge Plan Admission Admit Date/Time: 02/13/21 07:00 Attending Provider: Cody Goodwin Primary Care Provider: Hetal Benson Instructions Patient Instructions: After a Vaginal , Depression Discharge Orders/Prescriptions Prescriptions: No Action prenat.vits,[place]ington,[id number] Tablet 1 tab PO DAILY RF: 0 cyclobenzaprine [Flexeril] 5 mg Tablet 5 mg PO TID PRN (Reason: muscle spasms) RF: 0 duloxetine 20 mg capsule,delayed release(DR/EC) 20 mg PO DAILY RF: 0 Referrals / Follow Up: Hetal Benson MD [Primary Care Provider] - Disposition Disposition (needs filled in before D/C Order can be placed): Home, Self Care
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
--- NOTE | 2021-02-18 16:14 | NURSING ---
Follow up phone call done, bleeding is pretty light, mother satisfied with care.
== END 2021-02-14 23:20 | disposition home or self-care (01) | DRG 807 ==
PROVIDERS: Admitting Provider Obstetrics & Gynecology; PCP Internal Medicine; Visit Provider Obstetrics & Gynecology
DX: O16.4 Unspecified maternal hypertension, complicating childbirth (principal); Z37.0 Single live birth; O42.92 Full-term premature rupture of membranes, unspecified as to length of time between rupture and onset of labor; O99.824 Streptococcus B carrier state complicating childbirth; O99.344 Other mental disorders complicating childbirth; F32.A Depression, unspecified; F41.9 Anxiety disorder, unspecified; O70.1 Second degree perineal laceration during delivery; Z3A.39 39 weeks gestation of pregnancy
CPT/HCPCS: 59025; 59050; 80053; 83615; 85025; 86850; 86900; 86901; 99218; J7120; A4216; G0378; J2405

== ENCOUNTER → 2021-02-20 11:05 | Outpatient (CLI) | payer OTHER, SELFPAY | PROVIDERS: PCP Internal Medicine; Visit Provider Physician Assistant | DX: U07.1 COVID-19 (principal) | CPT/HCPCS: 87635; U0005; U0003 ==

== ENCOUNTER 2021-02-22 10:45 | Outpatient (CLI) | payer OTHER, MEDICAID, SELFPAY ==
[2021-02-22] MEDS: 0.9% Saline Lock 10 ML Syringe IV (11:03)
[2021-02-22 11:08] VITALS: BP 129/78; PULSE 120; RESP 16; TEMP 38.2; O2SAT 99; BMI 47.2
[2021-02-22] MEDS: Acetaminophen 325 MG Tablet 650 MG PO (11:54)
[2021-02-22 12:00] VITALS: BP 126/71; PULSE 107; RESP 16; TEMP 37.7; O2SAT 99
[2021-02-22 12:57] VITALS: BP 132/76; PULSE 108; RESP 16; TEMP 36.7; O2SAT 100
== END 2021-02-22 12:59 | disposition home or self-care (01) ==
LOC: MS3OUT 10:45 → MS3 10:53
PROVIDERS: PCP Internal Medicine; Referring Provider Nurse Practitioner Adult Health; Visit Provider Nurse Practitioner Adult Health
DX: U07.1 COVID-19 (principal)
CPT/HCPCS: J7050; M0245; Q0245; A4216

== ENCOUNTER 2021-05-01 10:42 | Outpatient (CLI) | payer MEDICAID, SELFPAY ==
--- NOTE | 2021-05-01 10:44 | RAD_ITS ---
STUDY: X-RAY - RIGHT FOOT CLINICAL: Female, 30 years old. Right heel pain. TECHNIQUE: 2 view(s) of the foot. COMPARISON: None. FINDINGS: Inferior calcaneal spur. Normal visualized subtalar, talonavicular, calcaneocuboid, tarsal and tarsometatarsal articulations. Normal metatarsi. Normal metatarsophalangeal joint of the great toe. Normal tibial and fibular sesamoid bones. Normal interphalangeal joint of the great toe. Normal phalanges of the great toe. Normal second through fifth metatarsophalangeal joints. Normal interphalangeal joints and phalanges of the lesser toes. The soft tissue structures are unremarkable. RAD/Foot 2 Views IMPRESSION: Inferior calcaneal spur. No other abnormality present. Electronically Signed: Rufino Grant MD at 11:13 EST , Service support ,
== END 2021-05-01 23:59 | disposition short-term general hospital (02) ==
LOC: MTRAD 10:43
PROVIDERS: PCP Internal Medicine; Referring Provider Nurse Practitioner Family; Visit Provider Nurse Practitioner Family
DX: M77.31 Calcaneal spur, right foot (principal)
CPT/HCPCS: 73620

== ENCOUNTER 2022-01-12 08:56 | Emergency (ER) | payer MEDICAID, SELFPAY ==
[2022-01-12 08:57] VITALS: BP 131/99; PULSE 99; RESP 16; TEMP 36.7; O2SAT 99; BMI 44.3
--- NOTE | 2022-01-12 09:28 | ED.VIS.BACK ---
HPI History of Present Illness Chief Complaint: Back Detail of Chief Complaint: Recurrent low back pain with a history of degenerative disc disease on MRI Informant: patient Onset/Context/Timing Onset: Days Context: Gradual Onset Timing: Continuous Quality: Dull and Aching Location: Lumbar Current Severity: Mild Maximum Severity: Moderate Worsened by: improves with Movement, Bending and Lifting; worse with Night time pain Relieved by: Remaining Still Associated Symptoms Associated Symptoms: Negative for Numbness, Tingling, Radiation to Right Leg, Radiation to Left Leg, Fever, Abdominal Pain, Dysuria, Unable to Ambulate, Unable to Transfer, Urinary Retention, Urinary Incontinence, Constipation or Fecal Incontinence Narrative Narrative: 31-year-old female history of anxiety and degenerative disc disease of her lower back. She had an MRI in November 2019. She states she has also history of spinal stenosis. States she occasionally gets flareups of her back. Recently been on steroids without any significant improvement. Said the pain has worsened over the weekend and today. Denies any recent fall injury or trauma. [place] and thinks that may have aggravated her back. Denies any fever. No bowel or bladder incontinence. No weakness in her legs. She also takes a muscle relaxant each night. Denies any blood thinners. Prior similar symptoms: Yes Recent Illness/Hospitalization: No PFSH [facility] Medical History Alcohol use Anxiety Anxiety and depression Arthritis Back disorder Back pain Care and examination of lactating mother Chronic pain of both knees Depression Injury of back Knee pain Migraine headache Neck pain Non-smoker Pain of right heel depression Scoliosis Spinal stenosis Wears contact lenses Wears glasses Home Medications control PO 05/01/21 [History Last Taken Unknown] duloxetine 60 mg capsule,delayed release 60 mg PO DAILY anxiety/depression #60 caps 11/25/21 [Rx Last Taken Unknown] cyclobenzaprine 10 mg tablet 5 - 10 mg PO TID PRN muscle spasm #30 tabs 12/31/21 [Rx Last Taken Unknown] Allergy/AdvReac Type Severity Reaction Status Date / Time No Known Allergies Allergy Verified 01/12/22 08:59 Family History Father Myocardial infarction, Onset Age: 48 Other Anxiety Arthritis Cancer Colon cancer Diabetes Heart disease Hypertension Kidney disease Social History Smoking Status: Former smoker how long ago did patient quit smokin alcohol intake: current alcohol intake frequency: a few times a month substance use type: does not use what type of physical activity do you participate in: walking frequency: 3-4 times per week ROS ROS ED ROS Narrative Low back pain. Review of Systems ROS Unobtainable: Denies due to encephalopathy Constitutional Constitutional ED: Denies chills or fever(s) Eyes Eyes: Denies blurry vision ENT ENT ED: Denies ear pain Cardiovascular Cardiovascular: Denies chest pain Respiratory/Chest Respiratory/Chest: Denies dyspnea Gastrointestinal Gastrointestinal: Denies abdominal pain Genitourinary Genitourinary ED: Denies dysuria or hematuria Musculoskeletal Musculoskeletal: Reports back pain; Denies arthralgias, myalgias or neck pain Integumentary Denies abscess or Abrasions Neurologic Neurologic: Denies headache(s) Psychiatric Psychiatric: Denies anxiety Endocrine Endocrinology: Denies cold intolerance Hematologic/Lymphatic Hematologic/Lymphatic: Denies easy bleeding Allergic/Immunologic Allergic/Immunologic ED: Denies mouth swelling EXAM Physical Exam Narrative Exam Narrative: 31-year-old female no acute distress lying in bed on her left side. Vital signs are stable afebrile. H EENT exam unremarkable. Neck nontender. Lungs clear to auscultation bilaterally. Heart regular rhythm no murmur. Abdomen soft nontender. Back she has reproducible tenderness in the paraspinal soft tissues of her lower lumbar spine and over the lumbar spine itself. No ecchymosis or bruising. No redness or warmth. Both upper and lower extremities are neurovascular intact with 5-5 motor strength. 5-5 spin table operator strength. Dorsi plantarflexion intact. No cauda equina or saddle anesthesia. Normal medial thigh sensation. Neurologically she is awake and alert with no focal motor deficits. Const Vital Signs: 01/12/22 08:57 Temperature 98.0 F Temperature Source Temporal Pulse Rate 99 Respiratory Rate 16 Blood Pressure 131/99 H Blood Pressure Mean 109 Pulse Ox 99 Oxygen Delivery Method Room Air Positive well nourished, well developed and obese; Negative for cachectic, contractures or unkempt General Appearance ED: well developed and NAD; Negative for unkempt, cachectic, contractures or pallor Nutritional Appearance: obese; Negative for cachectic HEENT Reports moist mucous membranes; Denies dry mucous membranes Negative for trauma or tenderness Mouth ED: No dry mucous membranes Mouth: No dry mucous membranes Eyes PERRL and EOMs intact bilaterally General Eye ED: Negative for pale conjunctiva, scleral icterus or other Neck no lymphadenopathy, supple and no JVD General: Negative for tenderness Resp normal respiratory effort and clear to auscultation bilaterally Effort and Inspection: Negative for pain with movement Auscultation: Negative for rales, rhonchi or wheezes Cardio regular rate, regular rhythm, S1 normal heart sound, S2 normal heart sound and no murmurs Palpation: Negative for palpable S3 Rate: Negative for bradycardia Rhythm: Negative for abnormal rhythm Bruits: Negative for other GI normal to inspection, nondistended, normoactive bowel sounds, soft to palpation, non-tender, non-distended and no masses Inspection: Negative for abdominal distention Auscultation: Negative for hyperactive bowel sounds Palpation: Negative for tender or guarding Back/Spine Negative for normal to inspection or no thoracic nor lumbar tenderness General Back: Negative for CVA tenderness Cervical Spine: Negative for cervical spine tenderness and Negative for paracervical muscle tenderness Thoracic Spine / Upper Back: paraspinal muscle tenderness Lumbar Spine / Lower Back: straight leg raise negative bilaterally; Negative for straight leg raise positive right or straight leg raise positive - left Extremity normal to inspection General Extremety ED: Negative for edema General Extremity: Negative for edema Neuro oriented x3 and no sensory deficits noted Sensorium / Orientation: alert; Negative for confused, lethargic or stuporous Motor Exam: strength 5/5 throughout Psych mental status grossly normal Appearance: Negative for unkempt Attitude: No agitated Mood & Affect: Negative for depressed Skin no rashes or lesions noted and no wounds General Skin Exam: Negative for jaundice or pallor Lesions: No lesion noted Rashes: No rashes noted Trauma: Negative for abrasion Wounds: Negative for wounds noted MDM MDM MDM Narrative Medical decision making narrative: 31-year-old female with acute on chronic low back pain with a history of degenerative disc disease in her lumbar spine. She is neurovascularly intact. She is already on a muscle relaxant at home. She will be given an IM injection of Toradol. He is anti-inflammatories at home. Her muscle relaxant. And follow-up with a local spine physician if not improving. Discharge Plan Triage Chief Complaint: Back ED Provider: Marcial Schulz Dx/Rx/DC Orders Clinical Impression: Chronic back pain, History of degenerative disc disease Instructions: ED Back and Neck Pain, General Prescriptions: No Action control PO duloxetine 60 mg capsule,delayed release(DR/EC) 60 mg PO DAILY Qty: 60 1RF cyclobenzaprine 10 mg tablet 5 - 10 mg PO TID PRN (Reason: muscle spasm) Qty: 30 0RF Primary Care Provider: Jacob Son NP Referrals: Juan Antonio Breen DO [Med Staff - Active Staff] - 1 Week if not improving Jacob Son NP, ASSISTANT PROFESSOR OF EDUCATION-C [Primary Care Provider] - As Needed Activity Restrictions/Additional Instructions: Anti-inflammatories for pain such as Motrin or Aleve. Hot shower warm bath to relax the muscles. Massage. Use your muscle relaxant at home. Follow-up with bilingual customer service specialist if not improving. Disposition Disposition: Home, Self Care
[2022-01-12] MEDS: Ketorolac 60 MG/2 ML Vial IM (09:33)
== END 2022-01-12 09:54 | disposition home or self-care (01) ==
LOC: ED 09:49
PROVIDERS: Emergency Provider Emergency Medicine; PCP Nurse Practitioner Family; Visit Provider Emergency Medicine
DX: M51.36 Other intervertebral disc degeneration, lumbar region (principal); Z68.41 Body mass index [BMI] 40.0-44.9, adult; G89.29 Other chronic pain; E66.9 Obesity, unspecified; Z72.89 Other problems related to lifestyle; Z87.891 Personal history of nicotine dependence
CPT/HCPCS: 96372; 99282

== ENCOUNTER → 2022-02-13 | Outpatient (CLI) | payer MEDICAID, SELFPAY ==
--- NOTE | 2022-02-13 10:45 | MRI_ITS ---
HISTORY: IDD. Injury 2018, lower back pain just above the buttocks. TECHNIQUE: Multiplanar and multisequence MR images of the lumbar spine were obtained without intravenous contrast. 120 images. COMPARISON: 11/27/2019. FINDINGS: VERTEBRAE: Vertebral body heights maintained. Degenerative endplate changes of L2-3. No focal bone marrow signal abnormality. ALIGNMENT: No anterior or posterior subluxation. CONUS: Normal morphology and position of the conus medullaris at T12. INTERVERTEBRAL DISCS: T12-L1: No significant posterior disc protrusion, central canal stenosis, or foraminal narrowing based on the sagittal images. L1-2: No significant posterior disc protrusion, central canal stenosis, or foraminal narrowing. L2-3: Increased size of central disc protrusion resulting in moderate central canal stenosis without significant foraminal narrowing. L3-4: Minimal disc bulge with facet arthropathy resulting in mild central canal stenosis and left foraminal narrowing, similar to prior. L4-5: Mild disc protrusion eccentric to the left with facet arthropathy resulting in mild central canal stenosis, mild-moderate left foraminal narrowing with left L4 nerve root abutment, and mild right foraminal narrowing similar to prior. L5-S1: No significant posterior disc protrusion, central canal stenosis, or foraminal narrowing. SOFT TISSUES: No paraspinal fluid collection. MRI/Spine Lumbar (Routine) IMPRESSION: Multilevel degenerative disc disease as above, increased at L2-3. Electronically Signed: Traa Toscano MD at 15:34 EDT ,
== END | disposition home or self-care (01) ==
LOC: MRI 10:14
PROVIDERS: PCP Nurse Practitioner Family; Referring Provider Orthopaedic Surgery; Visit Provider Orthopaedic Surgery
DX: M51.36 Other intervertebral disc degeneration, lumbar region (principal)
CPT/HCPCS: 72148

== ENCOUNTER → 2022-06-09 | Outpatient (CLI) | payer MEDICAID, SELFPAY ==
[2022-06-09 16:53] LABS: Absolute Lymphocyte Count 2.22 X10^3/uL (0.83-4.51); Absolute Neutrophil Count 3.7 X10^3/uL (2.0-7.7); Basophil# 0.02 X10^3/uL; Basophil% 0.3 % (0-1); Eosinophil# 0.06 X10^3/uL; Eosinophils% 0.9 % (0-5); Lymphocyte # 2.22 X10^3/ul (0.83-4.51); Lymphocyte % 34.3 % (19-41); Mean Corp Hgb Conc 32.6 g/dL (32-36); Mean Corpuscular Volume 95.3 fL (81-99); Mean Platelet Vol. 10.2 fl (6.2-12.0); Monocyte# 0.43 X10^3/uL; Monocyte% 6.6 % (0-10); NRBC Flagged by Analyzer 0 % (0-5); Neutrophil # 3.74 X10^3/uL (2.7-7.7); Neutrophil % 57.7 % (47-70); Platelet Count 223 K/mm3 (150-450); RBC Distribution Width CV 12.4 % (11.6-14.6); Red Blood Count 4.51 M/mm3 (4.2-5.4); White Blood Count 6.5 K/mm3 (4.4-11.0)
[2022-06-09 18:04] LABS: Vitamin B12 496 pg/mL (211-911); Vitamin D,25 Hydroxy 29.9 ng/mL
[2022-06-09 18:20] LABS: ALB/GLOB Ratio 0.9 RATIO (0.9-2.4); AST(SGOT) 34 U/L (15-37); Alanine Aminotransfer ALT/SGPT 55 U/L (13-56); Albumin, Serum 3.6 g/dL (3.2-5.0); Alkaline Phosphatase 55 U/L (45-117); Anion Gap 8 (5-15); BUN 11 mg/dL (7-18); BUN/Creat Ratio 12.8 RATIO (10-20); Chloride 106 mmol/L (98-107); Cholesterol 168 mg/dL (200); Creatinine, Serum 0.86 mg/dL (0.55-1.02); EST Glomerular Filtration Rate 82 mL/min (>60); Est Glom Filt Rate - Afr Amer 100 mL/min (>60); Globulin 3.8 g/dL (2.2-4.2); Glucose 79 mg/dL (74-106); High Density Lipoprotein 49 mg/dL; Potassium 4.1 mmol/L (3.5-5.1); Protein, Total 7.4 g/dL (6.4-8.2); Sodium Level 139 mmol/L (136-145); Thyroid Stim Hormone (TSH) 1.62 uIU/mL (0.358-3.74); Triglycerides 91 mg/dL; Very Low Density Lipoprotein 18 mg/dL (5-40)
[2022-06-09 18:36] LABS: Hemoglobin A1c 4.8 % (3.8-5.6)
== END | disposition home or self-care (01) ==
PROVIDERS: PCP Nurse Practitioner Family; Referring Provider Nurse Practitioner Family; Visit Provider Nurse Practitioner Family
DX: F41.9 Anxiety disorder, unspecified (principal); F32.9 Major depressive disorder, single episode, unspecified; M54.9 Dorsalgia, unspecified; G89.29 Other chronic pain; E66.9 Obesity, unspecified; E56.9 Vitamin deficiency, unspecified
CPT/HCPCS: 36415; 80053; 80061; 82306; 82607; 83036; 84443; 85025

== ENCOUNTER → 2022-06-24 | Outpatient (CLI) | payer MEDICAID, SELFPAY | END | disposition home or self-care (01) | LOC: SL 19:48 | PROVIDERS: PCP Nurse Practitioner Family; Visit Provider Nurse Practitioner Family | DX: G47.10 Hypersomnia, unspecified (principal) | CPT/HCPCS: 95810 ==

== ENCOUNTER 2022-09-02 13:30 | Outpatient (RCR) | payer MEDICAID, SELFPAY ==
--- NOTE | 2022-07-28 18:31 | HP.PTEVAL_ITS ---
Patient's Visit Information MATY AGUILAR is a 32 year old F referred to Physical Therapy by Dr. Jerry Unger MD with a diagnosis of Back pain/leg pain. Date of Evaluation: 07/28/22 Physical Therapist: Bhavesh Salazar, DPT, OCS, CSCS - Visit Plan Frequency: 2-3x /Week Duration: 4-6 Weeks Plan: 2-3x/week x 4-6 weeks for. 1. ensure HS and gastroc stretching at home. 2. progress to mat and core strength and ROM for HEP. 3. Move to gym based core and general ex and work to I membership. Consider pool if pain returns. - Subjective back pain, Started 5 yrs ago as she fell at work onto tailbone which iswhat hurt at first. A month later LBP started with excruciating pain hard to walk. Constant pain since. has manageable pain right now. Everyday life is doable right now. Gets unmanageable at time, lately two weeks ago jolting back while falling rolling ankle. had immediate back pain. had RFA done to back which did not help(April 2022). he will send to ortho if ablation did not work. Surgeon said in February that she did not qualify for surgery and sent to pain management. May get sent back now(Breen) but will try 2 meds first(steroid and muscle relaxer) , PT, and injection(maybe). Meds got life manageable and has 28 day supply. Currently just tight in LB. LBP 9/10 prior, now 3/10. Could not put socks on previously but can now. Sleep is OK on meds. Ached early in am prior. 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 can do ADLs right now since got meds. Hobbies: kids 6 yo and 1yo. No regular exercises. Had therapy exercises but has not continued them. No leg symptoms in a while. - Pain LBP Pain Intensity (Out of 10): 3 Pain Intensity Range: 3 - Objective Walks slowly but steadily back to PT area I, transfers I with UE. steps reciprocal with a rail. Posture is kyphosis in t/S and increased lordosis in lumbar area, tender to palpation in paraspins L2-5 and to PA pressure. LE and UE AROM is WFL buyt max tightness in HS at -45 90/90 B and DF to 0 only B, - Slump and - SLR today. AROM lumbar area not increasing pain today and flexion is tight and limited min to mod, others WFL. reflexes 2/3 in b patella and achilles. sensation LE WNL to gross light touch. Strength LE ankles and knees 4- and hips 3+, core strength is 3+. - Balance/Special Test Scores Oswestry Low Back Score: 8 - Goals Goal 1:: i approp gym core adn general ex, back ROM/yoga ex, and HS stretches to manage condition Goal Time Frame: 4-6 Weeks Goal 2:: Pain in LB 1-2/10 at all tiimes and 505 better overall. Goal Time Frame: 4-6 Weeks Goal 3:: Clean houses without imcreasing LBP Goal Time Frame: 4-6 Weeks Goal 4:: Back oswestry score 5 or less. Goal Time Frame: 4-6 Weeks - Rehabilitation Potential Physical Therapy Diagnosis: Poorly managed LB degeneration adn inflammation Rehabilitation Potential: Fair - Anticipated Interventions Patient/Client Instruction: Educate patient on: Condition, Plan of Care For the Purpose of:: To decrease pain, To increase ROM, To improve nutrient delivery to tissue, To improve muscle performance and motor function, To increase tolerance to activity/condition/position Therapeutic Exercise to Include: Strength training, Flexibilty training, Passive ROM, Active ROM, Dynamic Lumbar Stabilization For the Purpose of:: To decrease pain, To increase ROM, To improve nutrient delivery to tissue, To increase tolerance to activity/condition/position, To improve gait and locomotor functions Thank you for the opportunity to evaluate your patient. For Medicare and Medicare HMO plans, please review the plan of care and approve it. It will need to be FAXED BACK to us at [phone] for Medicare purposes. For Medicare only, by signing this I certify the plan of care. Please let me know if there are questions or concerns regarding this plan of care. Physician Signatur e: Date:
--- NOTE | 2022-10-26 14:17 | HP.PT.NRP ---
Patient Information Patient Information: MATY AGUILAR was seen in my office for initial evaluation on 07/28/22. The following Plan of Care was established for this patient: POC Established Initial Frequency: 2-3x /Week Initial Duration: 4-6 Weeks Anticipated Interventions Patient/Client Instruction: Educate patient on: Condition and Plan of Care For the Purpose of:: To decrease pain, To increase ROM, To improve nutrient delivery to tissue, To improve muscle performance and motor function and To increase tolerance to activity/condition/position Therapeutic Exercise to Include: Strength training, Flexibilty training, Passive ROM, Active ROM and Dynamic Lumbar Stabilization For the Purpose of:: To decrease pain, To increase ROM, To improve nutrient delivery to tissue, To increase tolerance to activity/condition/position and To improve gait and locomotor functions Last Seen Last Seen: This patient was last seen in our office 09/02/22. Pertinent comments regarding their Physical therapy will appear below: Pt seen 7 visits of POC but cancelled her eighth and final visit without rescheduling. At this point, it has been over 6 weeks and I will discontinue due to nonattendance. At this point I will be discontinuing this patient from physical therapy. I would be happy to see this patient again in the future if found appropriate by the physician. Thank you! Bhavesh Salazar, DPT, OCS, CSCS Balance/Gait/Functional tests Balance/Special Test Scores Oswestry Low Back Score: 8
== END 2022-09-02 19:00 | disposition home or self-care (01) ==
LOC: PT 13:30
PROVIDERS: PCP Nurse Practitioner Family; Referring Provider Anesthesiology Pain Medicine; Visit Provider Anesthesiology Pain Medicine
DX: M54.9 Dorsalgia, unspecified (principal); M79.606 Pain in leg, unspecified
CPT/HCPCS: 97110; 97162

== ENCOUNTER → 2023-04-30 | Outpatient (CLI) | payer MEDICAID, SELFPAY ==
--- OUTSIDE RECORDS SUMMARY | 2023-04-30 11:18 | XMS RPT_ITS | CCD ---
Author Name Unknown Address [facility] [facility] [address] [place] [address] Organization [facility] Care Team Providers Care Weight Guesser Name Role Phone Elizabeth SPEARS, Saran Emmanuel Primary Care Provider Medications Current Medications Medication Drug Class(es) Dates Sig (Normalized) Sig (Original) amoxicillin 875 mg / clavulanate 125 mg oral tablet (1 source) Penicillin-class Antibacterial Start: 04-17-2023 End: 04-22-2023 take 1 tablet by mouth twice daily amoxicillin-clav ulanate potassium (AUGMENTIN) 875-125 mg per tablet Take 1 tablet by mouth two times a day for 5 days. 10 tablet 0 04/17/2023 04/22/2023 Active Completed/Discontinued Medications Medication Drug Class(es) Dates Sig (Normalized) Sig (Original) DULoxetine 60 mg delayed release oral capsule (2 sources) Serotonin and Norepinephrine Reuptake Inhibitor Start: 09-14-2017 End: 04-17-2023 take 1 capsule by mouth once daily DULoxetine (CYMBALTA) 60 mg capsule TAKE ONE CAPSULE BY MOUTH DAILY 30 capsule 5 10/29/2017 04/17/2023 Discontinued Problems Problem Classification Problem Date Documented Da te Episodic/Chronic Anxiety disorders (1 source) Anxiety; Translations: [Anxiety disorder, unspecified] 05-06-2016 Chronic Other nutritional; endocrine; and metabolic disorders (1 source) Obesity caused by energy imbalance; Translations: [Morbid (severe) obesity due to excess calories] Onset: 07-08-2017 07-08-2017 Chronic Other upper respiratory infections (1 source) Acute sinusitis; Translations: [Acute sinusitis, unspecified] 04-17-2023 Episodic Results Test Name Value Interpretation Reference Range Facil ity Vital Signs Date Time Vital Sign Value Performing Clinician Faci lity 04-17-2023 14:01-0500 Body temperature 96.8 [degF] Jesus Albrecht MD Work Phone: [facility] 04-17-2023 14:01-0500 Body weight 141.7 kg Jesus Albrecht MD Work Phone: [facility] 04-17-2023 14:01-0500 Diastolic blood pressure 80 mm[Hg] Jesus Albrecht MD Work Phone: [facility] 04-17-2023 14:01-0500 Heart rate 85 /min Jesus Albrecht MD Work Phone: [facility] 04-17-2023 14:01-0500 Respiratory rate 21 /min Jesus Albrecht MD Work Phone: [facility] 04-17-2023 14:01-0500 SaO2% (BldA) [Mass fraction] 98 % Jesus Albrecht MD Work Phone: [facility] 04-17-2023 14:01-0500 Systolic blood pressure 110 mm[Hg] Jesus Albrecht MD Work Phone: [facility] Encounters Encounter Date Encounter Type Care Provider Facility Start: 04-17-2023 End: 04-17-[facility] Start: 04-17-2023 End: 04-17-2023 Patient encounter procedure Jesus Albrecht MD Work Phone: [facility] Plan of Treatment Date Care Activity Detail Author Start: 08-24-2026 Urine microalbumin profile DTa P,Tdap,Td Vaccine (2 - Td or Tdap) [facility] Start: 12-18-2022 Influenza vaccination Influenza Vacc ine (#1) [facility] Start: 2022 Screening for malign ant neoplasm of cervix HPV Testing [facility] Start: 04-19-2022 Depression Assessment Depression Ass essment [facility] Start: 04-01-2020 Screening for malign ant neoplasm of cervix Pap Testing [facility] Start: 03-02-2016 Hepatitis B Vaccine (2 of 3 - 19+ 3-dose series) Hepatitis B Vaccine (2 of 3 - 19+ 3-dose series) [facility] Start: 2010 Hepatitis C screening Hepatitis C Sc colt [facility] Start: 2010 HIV screening HIV Screening [facility] Start: 01-12-1993 Covid-19 Vaccine (#1) Covid-19 Vacci ne (#1) [facility] Immunizations Immunization Date Immunization Notes Care Provider Cecile clarkshanthi 01-25-2017 influenza, injectabl e, quadrivalent, contains preservative Jesus Albrecht MD Work Phone: [facility] 01-25-2017 influenza virus vacc ine, unspecified formulation Jesus Albrecht MD Work Phone: [facility] 08-24-2016 tetanus toxoid, redu patt diphtheria toxoid, and acellular pertussis vaccine, adsorbed Jesus Albrecht MD Work Phone: [facility] 02-03-2016 hepatitis B vaccine, adult dosage Jesus Albrecht MD Work Phone: [facility] 02-03-2016 influenza, injectabl e, quadrivalent, contains preservative Jesus Albrecht MD Work Phone: [facility] Payers Date Payer Category Payer Medicaid [id number] Social History Date Type Detail Facility Start: 02-03-2016 Tobacco smoking status NHIS Ex-smoker [facility] Work Phone: History of tobacco use Current smoker [facility] Work Phone: Start: 02-03-2016 Tobacco use and exposure Smokeless tobacco non-user [facility] Work Phone: Start: 04-17-2023 Alcohol intake Current drinke r of alcohol (finding) [facility] Start: 03-27-2020 End: 04-17-2023 History of Social function [facility] Start: 03-27-2020 End: 04-17-2023 Tobacco use panel [facility] National Score (1-100), lower number is lower risk Not on file [facility] Start: 02-03-2016 Alcohol Comment occasionally Dadavela paul [facility] Start: 1990 Sex Assigned At Not on file [facility] Progress note 04-17-2023 Note Date & Type Note Facility 04-17-2023 Note HNO ID: [id number] Author: Jesus Albrecht MD Service: ? Author Type: Physician Type: Progress Notes Filed: 04/17/2023 2:16 PM Note Text: Patient presents with: Sinus Problem: Possible sinus infection, bilateral ear issue x 3 weeks HPI: Feeling sinus symptoms for 3 weeks. Initial URI for 2 weeks. Worse sinus drainage 3 days ago. Positive symptoms: Earache, Sinus pressure, Nasal Congestion, Rhinorrhea, Post nasal drainage, Headache, cough Negative symptoms: Shortness of breath, Fever, Chills, Nausea, Vomiting, Diarrhea, OTC: Sudafed MEDICATIONS: Current Outpatient Medications Medication Sig DULoxetine (CYMBALTA) 60 mg capsule Take 1 capsule by mouth once daily. (Patient taking differently: Take 20 mg by mouth two times a day.) No current facility-administered medications for this visit. ALLERGIES: ALLERGIES No Known Allergies VITALS: BP 110/80 Pulse 85 Temp 36 ?C (96.8 ?F) Resp 21 Wt (!) 141.7 kg (312 lb 6.4 oz) LMP 01/19/2017 SpO2 98% BMI 46.81 kg/m? PHYSICAL EXAM: GEN: mildly ill appearing HEENT: PERRL, EOMI, conjunctiva clear Ears: canals clear. TMs without erythema, bulge, or effusion Sinuses: non-tender frontal sinus, non-tender maxillary sinuses Throat: moist mucous membranes, no erythema, no exudate Neck: supple, no thyromegaly, no lymphadenopathy HEART: regular rate and rhythm, no murmurs LUNGS: clear to auscultation, no wheezes or crackles, no increased WOB ASSESSMENT/PLAN: 1. Acute non-recurrent sinusitis, unspecified location - ICD9: 461.9, ICD10: J01.90 - Will begin treatment with Augmentin 875 mg PO BID for 5 days - Supportive care with plenty of fluids, rest, and analgesia prn. Jesus Albrecht MD [facility] History of Present illness Narrative 04-17-2023 Jesus Albrecht MD - 04/17/2023 2:05 PM EST Note Date & Type Note Facility 04-17-2023 History of Presen t illness Narrative Patient presents with: Sinus Problem: Possible sinus infection, bilateral ear issue x 3 weeks HPI: Feeling sinus symptoms for 3 weeks. Initial URI for 2 weeks. Worse sinus drainage 3 days ago. Positive symptoms: Earache, Sinus pressure, Nasal Congestion, Rhinorrhea, Post nasal drainage, Headache, cough Negative symptoms: Shortness of breath, Fever, Chills, Nausea, Vomiting, Diarrhea, OTC: Sudafed MEDICATIONS: Current Outpatient Medications Medication Sig DULoxetine (CYMBALTA) 60 mg capsule Take 1 capsule by mouth once daily. (Patient taking differently: Take 20 mg by mouth two times a day.) No current facility-administered medications for this visit. ALLERGIES: ALLERGIES No Known Allergies VITALS: BP 110/80 Pulse 85 Temp 36 C (96.8 F) Resp 21 Wt (!) 141.7 kg (312 lb 6.4 oz) LMP 01/19/2017 SpO2 98% BMI 46.81 kg/m PHYSICAL EXAM: GEN: mildly ill appearing HEENT: PERRL, EOMI, conjunctiva clear Ears: canals clear. TMs without erythema, bulge, or effusion Sinuses: non-tender frontal sinus, non-tender maxillary sinuses Throat: moist mucous membranes, no erythema, no exudate Neck: supple, no thyromegaly, no lymphadenopathy HEART: regular rate and rhythm, no murmurs LUNGS: clear to auscultation, no wheezes or crackles, no increased WOB ASSESSMENT/PLAN: 1. Acute non-recurrent sinusitis, unspecified location - ICD9: 461.9, ICD10: J01.90 - Will begin treatment with Augmentin 875 mg PO BID for 5 days - Supportive care with plenty of fluids, rest, and analgesia prn. Jesus Albrecht MD documented in this encounter [facility] Evaluation note Note Date & Type Note Facility documented in this encounter [facility] Summary Purpose Family History No Family History Records Found Advance Directives No Advanced Directives Records Found Additional Source Comments Source Comments (unrecognize d section and content) In the event this informatio n is protected by the Federal Confidentiality of Alcohol and Drug Abuse Patient Records regulations: The Federal rules restrict any use of the information to criminally investigate or prosecute any alcohol or drug abuse patient.[facility] Reason for Visit (unrecogniz ed section and content) Care Teams (unrecognized sec tion and content) INFORMATION SOURCE (unrecogn ized section and content) FOR RECORDS PERTAINING TO PATIENTS WHO ARE OR HAVE BEEN ENROLLED IN A CHEMICAL DEPENDENCY/SUBSTANCEABUSE PROGRAM, SOME INFORMATION MAY BE OMITTED. This clinical summary was aggregated from multiple sources. Caution should be exercised in using it in the provision of clinical care. This summary normalizes information from multiple sources, and as a consequence, information in this document may materially change the coding, format and clinical context of patient data. In addition, data may be omitted in some cases. CLINICAL DECISIONS SHOULD BE BASED ON THE PRIMARY CLINICAL RECORDS. [facility]. provides no warranty or guarantee of the accuracy or completeness of information in this document.
[2023-04-30 12:09] LABS: Absolute Lymphocyte Count 1.74 X10^3/uL (0.83-4.51); Absolute Neutrophil Count 3.4 X10^3/uL (2.0-7.7); Basophil# 0.02 X10^3/uL; Basophil% 0.4 % (0-1); Eosinophil# 0.04 X10^3/uL; Eosinophils% 0.7 % (0-5); Hematocrit 42.2 % (37-47); Hemoglobin 13.6 g/dL (12.0-15.0); Lymphocyte # 1.74 X10^3/ul (0.83-4.51); Lymphocyte % 31.6 % (19-41); Mean Corp Hgb Conc 32.2 g/dL (32-36); Mean Corpuscular Hgb 30.4 pg (27.0-32.0); Mean Corpuscular Volume 94.2 fL (81-99); Mean Platelet Vol. 10.2 fl (6.2-12.0); Monocyte% 5.4 % (0-10); NRBC Flagged by Analyzer 0 % (0-5); Neutrophil % 61.7 % (47-70); Platelet Count 242 K/mm3 (150-450); RBC Distribution Width CV 12.3 % (11.6-14.6); RBC Distribution Width SD 42.8 fl (35.1-43.9); Red Blood Count 4.48 M/mm3 (4.2-5.4); White Blood Count 5.5 K/mm3 (4.4-11.0)
[2023-04-30 12:46] LABS: AST(SGOT) 18 U/L (15-37); Alanine Aminotransfer ALT/SGPT 24 U/L (13-56); Albumin, Serum 3.6 g/dL (3.2-5.0); Alkaline Phosphatase 51 U/L (45-117); Anion Gap 6 (5-15); BUN 11 mg/dL (7-18); BUN/Creat Ratio 12.5 RATIO (10-20); Calcium,Total 8.8 mg/dL (8.5-10.1); Chloride 108 mmol/L (98-107); Cholesterol 158 mg/dL (200); Creatinine, Serum 0.88 mg/dL (0.55-1.02); EST Glomerular Filtration Rate 80 mL/min (>60); Est Glom Filt Rate - Afr Amer 97 mL/min (>60); Globulin 3.7 g/dL (2.2-4.2); Glucose 105 mg/dL (74-106); High Density Lipoprotein 42 mg/dL; Protein, Total 7.3 g/dL (6.4-8.2); Sodium Level 141 mmol/L (136-145); Triglycerides 149 mg/dL; Very Low Density Lipoprotein 30 mg/dL (5-40)
== END | disposition home or self-care (01) ==
LOC: BIMLAB 10:46
PROVIDERS: PCP Internal Medicine; Referring Provider Internal Medicine; Visit Provider Internal Medicine
DX: F32.A Depression, unspecified (principal); E66.01 Morbid (severe) obesity due to excess calories; F41.9 Anxiety disorder, unspecified; E55.9 Vitamin D deficiency, unspecified
CPT/HCPCS: 36415; 80053; 80061; 82306; 85025

== ENCOUNTER → 2024-04-13 | Outpatient (CLI) | payer MEDICAID, SELFPAY ==
[2024-04-13 15:07] LABS: Absolute Lymphocyte Count 1.72 X10^3/uL (0.83-4.51); Absolute Neutrophil Count 4.9 X10^3/uL (2.0-7.7); Basophil# 0.03 X10^3/uL; Basophil% 0.4 % (0-1); Eosinophil# 0.07 X10^3/uL; Hematocrit 40.3 % (37-47); Hemoglobin 13.3 g/dL (12.0-15.0); Lymphocyte # 1.72 X10^3/ul (0.83-4.51); Lymphocyte % 23.9 % (19-41); Mean Corpuscular Hgb 30.8 pg (27.0-32.0); Mean Corpuscular Volume 93.3 fL (81-99); Mean Platelet Vol. 9.9 fl (6.2-12.0); Monocyte# 0.42 X10^3/uL; Monocyte% 5.8 % (0-10); NRBC Flagged by Analyzer 0 % (0-5); Neutrophil # 4.94 X10^3/uL (2.7-7.7); Neutrophil % 68.8 % (47-70); Platelet Count 226 K/mm3 (150-450); RBC Distribution Width CV 12.5 % (11.6-14.6); RBC Distribution Width SD 43.2 fl (35.1-43.9); Red Blood Count 4.32 M/mm3 (4.2-5.4); White Blood Count 7.2 K/mm3 (4.4-11.0)
[2024-04-13 15:42] LABS: ALB/GLOB Ratio 0.9 RATIO (0.9-2.4); AST(SGOT) 15 U/L (15-37); Alanine Aminotransfer ALT/SGPT 20 U/L (13-56); Albumin, Serum 3.5 g/dL (3.2-5.0); Alkaline Phosphatase 59 U/L (45-117); Anion Gap 5 (5-15); BUN 13 mg/dL (7-18); BUN/Creat Ratio 13.4 RATIO (10-20); Calcium,Total 8.9 mg/dL (8.5-10.1); Chloride 104 mmol/L (98-107); Cholesterol 187 mg/dL (200); Creatinine, Serum 0.97 mg/dL (0.55-1.02); EST Glomerular Filtration Rate 71 mL/min (>60); Est Glom Filt Rate - Afr Amer 86 mL/min (>60); Globulin 3.7 g/dL (2.2-4.2); Glucose 93 mg/dL (74-106); High Density Lipoprotein 45 mg/dL; Potassium 4.1 mmol/L (3.5-5.1); Protein, Total 7.2 g/dL (6.4-8.2); Sodium Level 138 mmol/L (136-145); Triglycerides 313 mg/dL; Very Low Density Lipoprotein 63 mg/dL (5-40)
== END | disposition home or self-care (01) ==
LOC: BIMLAB 13:54
PROVIDERS: PCP Internal Medicine; Referring Provider Internal Medicine; Visit Provider Internal Medicine
DX: F41.9 Anxiety disorder, unspecified (principal); F32.9 Major depressive disorder, single episode, unspecified; Z13.6 Encounter for screening for cardiovascular disorders
CPT/HCPCS: 36415; 80053; 80061; 85025